=== PATIENT | male | born 1955 | race Caucasian/White ===

== ENCOUNTER → 2024-03-28 06:47 | Outpatient (REF) | payer BC, SELFPAY ==
[2024-03-28 07:26] LABS: % Basophils 1.1 % (0-2); % Eosinophils 6.1 % (0-6); % Immature Granulocytes 0.3 % (0-0.5); % Lymphocytes 25.9 % (20.5-51.1); % Monocytes 6.4 % (1.7-9.3); % Neutrophils 60.2 % (42.2-75.2); Absolute Basophils 0.1 10^3/uL (0-0.2); Absolute Eosinophils 0.4 10^3/uL (0-0.7); Absolute Lymphocytes 1.9 10^3/uL (1.2-3.4); Absolute Monocytes 0.5 10^3/uL (0.1-0.6); Absolute Neutrophils 4.4 10^3/uL (1.4-6.5); Hematocrit 50.5 % (39.0-52.0); Hemoglobin 16.7 g/dL (13.0-18.0); Mean Corp Hgb Conc. 33.1 g/dL (33.0-37.0); Mean Corpuscular Hgb 28.1 pg (27.0-31.0); Mean Platelet Volume 11.2 fL (7.4-10.4); Nucleated Red Blood Cells % 0 % (-); Platelet Count 213 10^3/uL (130-400); Red Blood Cell Count 5.94 10^6/uL (4.70-6.10); Red Cell Dist. Width 13.1 % (11.5-14.5); White Blood Cell Count 7.2 10^3/uL (4.8-10.8)
[2024-03-28 07:54] LABS: ALT (SGPT) 32 U/L (0-50); AST (SGOT) 28 U/L (17-59); Albumin 4.8 g/dl (3.5-5.0); Alkaline Phosphatase 58 U/L (38-126); Blood Urea Nitrogen 23 mg/dl (9-20); Carbon Dioxide 25 mmol/L (22-30); Chloride 103 mmol/L (98-107); Glucose 158 mg/dl (70-99); HDL Cholesterol 42 mg/dl; LDL Cholesterol, Calculated 67 mg/dl; Potassium 4.5 mmol/L (3.5-5.1); Sodium 141 mmol/L (135-145); Total Bilirubin 0.6 mg/dl (0.2-1.3); Total Cholesterol 145 mg/dl (50-199); Triglyceride 182 mg/dl (10-149); Very Low Density Lipoprotein 36 mg/dl (0-30); eGFR > 60.00
[2024-03-28 08:05] LABS: Microalbumin, Random Urine 0.6 mg/dl (0.6-1.7)
[2024-03-28 08:07] LABS: Microalbumin/creatinine Ratio 5.2 mg/g
[2024-03-28 08:19] LABS: Glycohemoglobin (HgbA1c) 7.2 % (4.0-5.6)
[2024-03-28 08:22] LABS: PSA, Total - Screen 0.64 ng/ml (0.0-4.0); TSH Reflex To Free T4 3.23 uIU/ml (0.47-4.68)
== END ==
LOC: REG 06:47
PROVIDERS: ATTENDING PHYSICIAN Internal Medicine
DX: Z12.5 Encounter for screening for malignant neoplasm of prostate (principal); I25.708 Atherosclerosis of coronary artery bypass graft(s), unspecified, with other forms of angina pectoris; I10 Essential (primary) hypertension; I25.10 Atherosclerotic heart disease of native coronary artery without angina pectoris; E78.2 Mixed hyperlipidemia; R73.9 Hyperglycemia, unspecified; E11.9 Type 2 diabetes mellitus without complications
CPT/HCPCS: 36415; 80053; 80061; 82043; 82570; 83036; 84443; 85025; G0103

== ENCOUNTER 2024-10-23 09:56 | Emergency (ER) | payer BC, SELFPAY ==
[2024-10-23 10:03] VITALS: BP 149/90
--- NOTE | 2024-10-23 11:57 | ED.SKININJ ---
HPI-Injury
General
Chief Complaint: Skin Surface Trauma
Source: patient
Exam Limitations: none
Time Seen by Provider: 10/23/24 11:56
Nursing documentation reviewed up to this point in time: agreed with
History of Present Illness-Injury
Initial Injury comments:
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
and cut left index finger pad, right hand medial aspect, tip of left 5th finger, few other minor scapes on fingers. Unsure of last Tdap.
Past History
Past History
ED Past Medical History: CAD, HTN, Hypercholesterolemia and Other
ED Past Surgical History: Cardiac (stents) and Other
Social History
Tobacco: Non-smoker
Alcohol: Other
Drug: None
Personal:
Living: with family
Employment: Employed
Family History
Family History: Other
Review of Systems
Review of Systems
Allergies reviewed?: Yes
All Other Systems: ROS reviewed and negative except as documented in HPI and ROS
Skin: Reports other (multiple cuts on hands)
Neurological: Denies numbness
Skin Exam
Laceration
base right thmb dorsal surfact:
Length in cm: 2
Orientation: L shaped
Type of Laceration: simple
Any active bleeding?: active arterial pumper
Distal skin color and temperature: normal-warm & good color
Normal distal neurovascular exam: Yes
Range of motion: full
right index finger pad:
Length in cm: 1.5
Orientation: vertical
Type of Laceration: simple
Any active bleeding?: low grade venous oozing
Distal skin color and temperature: normal-warm & good color
Normal distal neurovascular exam: Yes
Range of motion: full
tip of right 5th finger:
Length in cm: 0.5
Orientation: C shaped
Type of Laceration: simple
Any active bleeding?: low grade venous oozing
Range of motion: full
Phy Exam
Physical Exam
Physical Exam:
PHYSICAL EXAMINATION:
General: no apparent distress, not acutely ill
Neuro: alert and oriented.
Psychiatric: well kept. interactive and cooperative
Musculoskeletal: Moves with ease
Skin: Warm, pink.
Course
Orders/Labs/Results
Orders:
Orders
10/23/24 12:07
Tetanus/Diphth/Acelpertussis [Adacel] 0.5 ml IM .ONCE ONE
Vital Signs
Initial and Last Documented VS:
Initial Vital Signs
Temp Pulse Resp BP Pulse Ox
97.8 F 72 18 149/90 98
10/23/24 10:03 10/23/24 10:03 10/23/24 10:03 10/23/24 10:03 10/23/24 10:03
Last Documented Vital Signs
Temp Pulse Resp BP Pulse Ox
97.8 F 72 18 149/90 98
10/23/24 10:03 10/23/24 10:03 10/23/24 10:03 10/23/24 10:03 10/23/24 10:03
Procedures
Laceration Closure
dorsum, base right thumb:
Status of Wound: clean
Size of Wound in cm: 2
Description of Wound Edges: sharp
Preparation: cleaned with saline
Anesthesia: 1% Lidocaine with epi
Revision/Debridement: routine- no revision
Wound exploration: explored to base- no FB and no tendon involvement
Type of Closure: single layer closure
Skin Closure Material: 4-0 nylon
Number of sutures: 4
Additional information:
tiny arterial pumper ligated with suture, good hemostasis
ATB ointemnt nonstick and gauze dressing applied
right index finger pad:
Status of Wound: clean
Size of Wound in cm: 1.5
Description of Wound Edges: sharp
Preparation: cleaned with saline
Revision/Debridement: routine- no revision
Wound exploration: no tendon involvement
Type of Closure: Dermabond-skin glue
Additional information:
band aid and aluminum helmet splint applied for protection.
tip of right 5th finger:
Size of Wound in cm: 0.5
Description of Wound Edges: sharp
Preparation: cleaned with saline
Revision/Debridement: routine- no revision
Type of Closure: Dermabond-skin glue
Additional information:
band aid and aluminum finger tip splint applied for protection
MDM/Problems Addressed
MDM/Problems Addressed:
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
and cut left index finger pad, right hand medial aspect, tip of left 5th finger, few other minor scapes on fingers. Unsure of last Tdap.
Lacerations sutured or glued
Several minor deep clean abrasions
Hands washed with antibacterial soap and water, antibiotic ointment and Band-Aids applied to abrasions
Tdap updated
*Critical Care Note
Total Time (30-74mins, 75-104mins- exclusive of procedures): Not Applicable
ED Attending Note
-
Portions of this chart may have been created with voice recognition software.� Occasional wrong word or��sound alike� substitutions may have occurred due to the inherent limitations of voice recognition software.
Discharge Plan
Departure
Patient Disposition: Home (Routine Discharge)
Date of Disposition: 10/23/24
Time of Disposition: 12:52
Patient with high blood pressure during this ER visit?: No
Condition: Good
Discharge Problem:
Laceration of multiple sites of hand and fingers without complication
Instructions: Laceration Repair With Glue (DC), Laceration Repair With Stitches (DC)
Prescriptions:
No Action
aspirin 325 MG tablet
325 mg PO DAILY
atenolol 25 MG tablet
25 mg PO DAILY
simvastatin 10 MG tablet
10 mg PO DAILY
gemfibrozil 600 MG tablet
600 mg PO BID
furosemide 40 MG tablet
40 mg PO DAILY Qty: 5 0RF
acetaminophen 325 MG tablet
650 mg PO Q4HPRN PRN (Reason: mild pain) Qty: 0 0RF
sennosides-docusate sodium 1 TABLET tablet
1 tab PO Q12 PRN (Reason: constipation) Qty: 0 0RF
Rx Instructions:
over the counter medicine
potassium chloride [Klor-Con M20] 20 MEQ tablet,ER particles/crystals
20 meq PO DAILY Qty: 5 0RF
oxycodone 5 MG tablet
5 mg PO Q6HPRN PRN (Reason: severe pain) Qty: 40 0RF
multivitamin with folic acid [Tab-A-Kwadwo] 1 TABLET tablet
1 tab PO DAILY Qty: 0 0RF
prednisone 20 mg tablet
20 mg PO DAILY 4 Days Qty: 4 0RF
azithromycin [Zithromax] 250 mg tablet
250 mg PO DAILY 4 Days Qty: 4 0RF
Referrals:
Fausto Pan I., DO [Family Provider, Internal Medicine] - Call in 1-3 days for appt
Activity Restrictions/Additional Instructions:
As we discussed, have the sutures removed in 10 to 12 days.
You may gently wash your hands in the shower as usual, just do not rub the glued areas and do not put any ointments on those areas. Protect them with Band-Aid and the aluminum fingertip splint as needed.
Interventions
Interventions:
*Risk Screen - Suicide Last Done: 10/23/24 10:03
*General Assessment Last Done: 10/23/24 10:03
*Neglect/Abuse Screening Last Done: 10/23/24 10:03
*ED- Fall Risk Assessment Last Done: 10/23/24 10:46
*ED COVID-19 Vaccine History Last Done: 10/23/24 10:46
*Nursing Disposition Last Done: 10/23/24 13:09
ED-Skin Assessment Last Done: 10/23/24 10:49
Discharge Date and Time
Discharge Date/Time: 10/23/24 13:10
Print Language: URDU
[2024-10-23] MEDS: ADACEL 0.5 ML IM (12:16)
== END 2024-10-23 13:10 | disposition home or self-care (01) ==
LOC: EMR 09:56
PROVIDERS: EMERGENCY PHYSICIAN Emergency Medicine; FAMILY PHYSICIAN Internal Medicine
DX: S61.211A Laceration without foreign body of left index finger without damage to nail, initial encounter (principal); S61.217A Laceration without foreign body of left little finger without damage to nail, initial encounter; S61.411A Laceration without foreign body of right hand, initial encounter; W25.XXXA Contact with sharp glass, initial encounter; Y93.G1 Activity, food preparation and clean up; E11.9 Type 2 diabetes mellitus without complications; E78.00 Pure hypercholesterolemia, unspecified; I10 Essential (primary) hypertension; I25.10 Atherosclerotic heart disease of native coronary artery without angina pectoris; Z95.1 Presence of aortocoronary bypass graft; Z95.5 Presence of coronary angioplasty implant and graft; Z23 Encounter for immunization
CPT/HCPCS: 90471; 12002; 99282; 90715

== ENCOUNTER → 2025-04-04 06:49 | Outpatient (REF) | payer BC, SELFPAY ==
[2025-04-04 07:58] LABS: Hematocrit 47.5 % (39.0-52.0); Hemoglobin 15.5 g/dL (13.0-18.0); Mean Corp Hgb Conc. 32.6 g/dL (33.0-37.0); Mean Corpuscular Volume 83.9 fL (80.0-94.0); Nucleated Red Blood Cells % 0 % (-); Platelet Count 224 10^3/uL (130-400); Red Cell Dist. Width 13.6 % (11.5-14.5)
[2025-04-04 08:38] LABS: ALT (SGPT) 28 U/L (0-50); AST (SGOT) 21 U/L (17-59); Albumin 4.6 g/dl (3.5-5.0); Alkaline Phosphatase 62 U/L (38-126); Blood Urea Nitrogen 21 mg/dl (9-20); Calcium 10.0 mg/dl (8.4-10.2); Carbon Dioxide 28 mmol/L (22-30); Chloride 103 mmol/L (98-107); Glucose 159 mg/dl (70-99); HDL Cholesterol 39 mg/dl; LDL Cholesterol, Calculated 54 mg/dl; Potassium 4.6 mmol/L (3.5-5.1); Sodium 136 mmol/L (135-145); Total Protein 6.8 g/dl (6.3-8.2); Very Low Density Lipoprotein 37 mg/dl (0-30); eGFR > 60.00
[2025-04-04 09:05] LABS: PSA, Total - Screen 0.59 ng/ml (0.0-4.0)
[2025-04-04 10:06] LABS: Glycohemoglobin (HgbA1c) 7.8 % (4.0-5.9)
== END ==
LOC: REG 06:49
PROVIDERS: ATTENDING PHYSICIAN Internal Medicine
DX: Z12.5 Encounter for screening for malignant neoplasm of prostate (principal); I25.708 Atherosclerosis of coronary artery bypass graft(s), unspecified, with other forms of angina pectoris; E11.9 Type 2 diabetes mellitus without complications; I10 Essential (primary) hypertension
CPT/HCPCS: 36415; 80053; 80061; 83036; 84443; 85025; G0103